=== PATIENT | male | born 1995 | race Hispanic/Latino ===

== ENCOUNTER 2018-11-14 22:16 | Emergency (ER) | payer OTHER, SELFPAY ==
[2018-11-14 22:19] VITALS: BP 120/64; PULSE 80; RESP 16; TEMP 36.8; O2SAT 98; BMI 30.8
--- NOTE | 2018-11-14 22:19 | DI.RAD.S_ITS ---
PROCEDURE: XR HAND RT MIN 3V INDICATIONS: Hand vs belt/metal TECHNIQUE: 3 views of the hand(s) acquired. COMPARISON: None. FINDINGS: Bones: No fractures or dislocations. Carpal bones are normally aligned. No suspicious bony lesions. Soft tissues: No suspicious soft tissue calcifications. IMPRESSION: No fracture. No osseous lesion. If symptoms and/or clinical suspicion for pathology persists, further assessment with repeat radiographs (7-10 days) or advanced imaging (e.g. CT, MRI or bone scan) may be helpful. Dictated by: Citlalli Chavira MD, PhD on 11/15/2018 at 8:57 Approved by: Citlalli Chavira MD, PhD on 11/15/2018 at 8:57
[2018-11-14] MEDS: TET,DIPH,PERTUSS(ACELL),VAC/PF 0.5 ML SYRINGE IM (22:20)
[2018-11-14] MEDS: LIDOCAINE 1% (PF) 6 ML INJ (22:24)
--- NOTE | 2018-11-14 22:25 | ED.WOUNDLAC ---
HPI - Wound/Laceration General Chief Complaint: Wound/Laceration Stated Complaint: lac on pinky finger Time Seen by Provider: 11/14/18 22:17 Source: patient Mode of arrival: ambulatory Limitations: no limitations History of Present Illness HPI narrative: 23-year-old male here for evaluation of cuts that he has sustained to his right hand. Patient was at work when he got his hand caught in a conveyor belt. He does not remember when his last tetanus shot was. Has not done anything to the wounds prior to arrival. Related Data Allergies Allergy/AdvReac Type Severity Reaction Status Date / Time No Known Drug Allergies Allergy Verified 11/14/18 22:41 Review of Systems Constitutional Denies fever(s) Cardiovascular Denies chest pain and Denies dyspnea Respiratory Denies dyspnea Gastrointestinal Gastrointestinal: Denies abdominal pain Musculoskeletal Comments: Pain in the right hand Integumentary/Breasts Comments: Laceration to the right hand Neurologic Denies behavioral changes Psychiatric Denies behavioral changes [facility] Medical History Patient denies medical problems (Acute) Social History lives independently: Yes Social History lives independently: Yes Exam Initial Vital Signs Initial Vital Signs: Vital Signs Temperature 98.3 F 11/14/18 22:19 Pulse Rate 80 11/14/18 22:19 Respiratory Rate 16 11/14/18 22:19 Blood Pressure 120/64 11/14/18 22:19 Pulse Oximetry 98 11/14/18 22:19 Const General: cooperative, comfortable and well groomed Orientation: alert, awake and oriented x3 Cardio Pulses: radial pulses present on the right Skin Other: Patient with a 2 cm laceration on the volar aspect of the right hand on the index finger in between the MCP and PIP joint. Second 2 cm laceration on the palmar aspect on the ring finger between the MCP and PIP joint. Patient with a 3rd irregular 3 cm cut on the volar aspect of the right little finger in between the MCP and PIP joint. Neuro Sensory Exam: no sensory deficits noted Extrem Other: Full range of motion of right wrist and joints of the fingers of the right and Procedures Laceration Repair Laceration 1: Site: hand Side (If applicable): right Size (cm): 22 Description: linear Depth: simple, single layer Amount of anesthesia used (mL): 2 Pre-repair: wound explored, irrigated extensively and deep structures intact Skin layer closed with: nylon Size (cm): 3-0 Number of sutures: 2 Technique: simple, interrupted Laceration 2: Site: hand Side (If applicable): right Size (cm): 2 Description: linear and clean Depth: simple, single layer Local Anesthetic: lidocaine 1% Amount of anesthesia used (mL): 2 Pre-repair: wound explored, irrigated extensively and deep structures intact Skin layer closed with: nylon Size (cm): 3-0 Number of sutures: 2 Technique: simple, interrupted Laceration 3: Site: hand Side (If applicable): right Size (cm): 3 Description: flap and irregular Depth: simple, single layer Local Anesthetic: lidocaine 1% Amount of anesthesia used (mL): 2 Pre-repair: wound explored, irrigated extensively and deep structures intact Skin layer closed with: nylon Size (cm): 3-0 Number of sutures: 6 Technique: simple, interrupted Course Orders Ordered: ED Orders 11/14/18 22:19 XR hand RT min 3V Stat Discontinued Medications Bacitracin (Bacitracin) 1 applic TOP NOW ONE Stop: 11/14/18 23:30 Last Admin: 11/14/18 23:37 Dose: 1 applic Diphtheria/Tetanus/Acell Pertussis (Adacel) 0.5 ml IM .ONCE ONE Stop: 11/14/18 22:18 Last Admin: 11/14/18 22:20 Dose: 0.5 ml Lidocaine HCl (Xylocaine 1% (Pf)) 6 ml INJ NOW ONE Stop: 11/14/18 22:20 Last Admin: 11/14/18 22:24 Dose: 6 ml Vital Signs - 8 hr 11/14/18 22:19 11/14/18 23:50 Temperature 98.3 F Pulse Rate 80 80 Respiratory Rate 16 16 Blood Pressure 120/64 120/70 Pulse Oximetry 98 99 MDM - Wound/Laceration Imaging Data Hand x-ray: Attestation: I personally reviewed and interpreted this imaging study as follows: My impression: No fractures or dislocation MDM Narrative Medical decision making narrative: Patient's tetanus was updated. Wounds were irrigated extensively. No deep structure involvement. Closed as described above. Patient was given return precautions and follow-up instructions. He expressed understanding and agreement with plan. Discharge Plan Departure Patient Disposition: Home Clinical Impression: Laceration Discharge Date/Time: 11/14/18 23:50 Interventions: ED Discharge Assessment Last Done: 11/14/18 23:50 Instructions: DI for Laceration Repair Activity Restrictions/Additional Instructions: Keep the bandage on for the next 24 hours. After that you can wash your hand like normal you can use soap and water like normal. Do not soak your hand anything. I would recommend no work tomorrow. On Sunday you can go back to work but keep your hand clean. The stitches do need to be removed in 7 days. You can also contact [phone] to talk with the health manager human resources to help to establish a primary provider. Return to the emergency department for any new or worsening symptoms Stand Alone Forms: Work Release Note
--- NOTE | 2018-11-14 23:18 | PC.NURSE ---
Dr Terry at bedside placing sutures.
[2018-11-14] MEDS: BACITRACIN OINT 0.9 GM PCKT 1 APPLIC TOP (23:37)
--- NOTE | 2018-11-14 23:45 | PC.NURSE ---
Bacitracin and bandages applied. Alumifoam splint applied to 5th finger per Dr. Terry.
[2018-11-14 23:50] VITALS: BP 120/70; PULSE 80; RESP 16; O2SAT 99
== END 2018-11-14 23:50 | disposition home or self-care (01) ==
PROVIDERS: Emergency Provider Emergency Medicine
DX: S61.411A Laceration without foreign body of right hand, initial encounter (principal); W23.0XXA Caught, crushed, jammed, or pinched between moving objects, initial encounter; Y99.0 Civilian activity done for income or pay
CPT/HCPCS: 12002; 73130; 99283; 90715

== ENCOUNTER 2018-11-21 14:22 | Emergency (ER) | payer OTHER, SELFPAY ==
[2018-11-21 14:25] VITALS: PULSE 81; TEMP 36.8; O2SAT 97; BMI 30.8
--- NOTE | 2018-11-21 16:48 | ED_ITS ---
HPI - Recheck/Abnormal Lab/Rx <Geovanna Whaley PA-C - Last Filed: 11/21/18 18:53> General Chief Complaint: Recheck/Abnormal Lab/Rx Stated Complaint: stitches removal right hand Time Seen by Provider: 11/21/18 14:47 Source: patient Mode of arrival: ambulatory Limitations: no limitations History of Present Illness HPI narrative: This 23-year-old male was seen last week for right hand lacera tions sustained at work. He had 3 sets of simple sutures placed. 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 He tried on Sunday but felt like he might have popped the sutures a little bit. Other than that, he has not had any problems, mild tenderness with pressure around the wound, no redness or drainage. Related Data Allergies Allergy/AdvReac Type Severity Reaction Status Date / Time No Known Drug Allergies Allergy Verified 11/21/18 14:25 Review of Systems <Geovanna Whaley PA-C - Last Filed: 11/21/18 18:53> Review of Systems ROS Unobtainable: All systems reviewed & are unremarkable except as noted in HPI and below PFSH <Geovanna Whaley PA-C - Last Filed: 11/21/18 18:53> Medical History Patient denies medical problems (Acute) Surgical History (Updated 11/21/18 @ 17:07 by Geovanna Whaley PA-C) No pertinent past surgical history (Acute) Social History lives independently: Yes Smoking Status: Current every day smoker Social History lives independently: Yes Smoking Status: Current every day smoker Exam <Geovanna Whaley PA-C - Last Filed: 11/21/18 18:53> Narrative Exam Narrative: General: Patient is sitting comfortably Dermatologic: There are 3 right palmar lacerations with some scabbing especially over the hypothenar area, all with sutures intact, clean and dry. After suture removal, there is a slightly open area oozing a bit under 1 of the scabs on the lateral wound. Steri-Strips and Levy wrap applied Neurovascular: Right hand is warm and pink with brisk cap refill, sensation grossly intact Musculoskeletal: Right hand fingers full range of motion, strength is intact against resistance in all marie, no effusion Initial Vital Signs Initial Vital Signs: Vital Signs Temperature 98.2 F 11/21/18 14:25 Pulse Rate 81 11/21/18 14:25 Pulse Oximetry 97 11/21/18 14:25 <Shira Taylor MD - Last Filed: 11/22/18 08:19> Initial Vital Signs Initial Vital Signs: Vital Signs Temperature 98.2 F 11/21/18 14:25 Pulse Rate 81 11/21/18 14:25 Pulse Oximetry 97 11/21/18 14:25 Course <Geovanna Whaley PA-C - Last Filed: 11/21/18 18:53> Course Additional Information: Patient was advised to keep pressure off of his wounds for a few more days to allow lateral 1 to fully heal by secondary intention. He will remain off of work tomorrow since he is unable to do light duty without repetitive use of the right hand and pressure on the area. Advised to keep wrapped with dressing on. Vital Signs Vital signs: Vital Signs - 8 hr 11/21/18 14:25 11/21/18 18:04 Temperature 98.2 F Pulse Rate 81 64 Respiratory Rate 14 Blood Pressure 111/64 Pulse Oximetry 97 100 <Shira Taylor MD - Last Filed: 11/22/18 08:19> Vital Signs Vital signs: Vital Signs - 8 hr 11/21/18 14:25 11/21/18 18:04 Temperature 98.2 F Pulse Rate 81 64 Respiratory Rate 14 Blood Pressure 111/64 Pulse Oximetry 97 100 Discharge Plan Departure Patient Disposition: Home Clinical Impression: Encounter for removal of sutures Discharge Date/Time: 11/21/18 18:05 Instructions: DI for Suture Removal Activity Restrictions/Additional Instructions: Please monitor for any signs of infection or problems with wound healing and follow up with your PCP if any. Please continue to protect the hand a little bit as needed until your discomfort resolves. Your wounds appear to be healing well today.
--- NOTE | 2018-11-21 17:57 | PC.NURSE ---
steri strips placed to laceration. and hand wrapped with ricardo wrap.
[2018-11-21 18:04] VITALS: BP 111/64; PULSE 64; RESP 14; O2SAT 100
== END 2018-11-21 18:05 | disposition home or self-care (01) ==
PROVIDERS: Emergency Provider Internal Medicine
DX: Z48.02 Encounter for removal of sutures (principal); Y99.0 Civilian activity done for income or pay
CPT/HCPCS: 99282

== ENCOUNTER 2021-06-06 17:39 | Emergency (ER) | payer BC, SELFPAY ==
[2021-06-06 18:20] VITALS: BP 165/75; PULSE 99; RESP 17; TEMP 36.6; O2SAT 99; BMI 28.7
--- NOTE | 2021-06-06 18:26 | DI.RAD.S_ITS ---
PROCEDURE: XR FEMUR LT MIN 2V INDICATIONS: injury TECHNIQUE: 2 views of the femur were acquired. COMPARISON: None. FINDINGS: Bones: No fractures or dislocations. No suspicious bony lesions. Soft tissues: No suspicious soft tissue calcifications or masses. IMPRESSION: No acute finding. Dictated by: Rob Saleh M.D. on 06/06/2021 at 19:22 Approved by: Rob Saleh M.D. on 06/06/2021 at 19:23
--- NOTE | 2021-06-06 20:03 | ED.LOWEXIN ---
HPI - Extremity Injury (Lower) <THAI Tello - Last Filed: 06/06/21 20:09> General Chief Complaint: Extremity Injury, Lower Stated Complaint: DROPPED DRESSER ON LEFT LEG Time Seen by Provider: 06/06/21 19:46 Source: patient Mode of arrival: Ambulatory History of Present Illness HPI Narrative: 25-year-old male presents to the emergency department complaining of having a dresser fall on to his left upper leg earlier today and now having swelling, a large abrasion and concern for internal bleeding. Patient denies any weakness in his leg, he states these same able to ambulate without difficulty, he states it is painful when he walks because of the movement of soft tissue. Patient denies not remember when his last tetanus was. Patient states he is otherwise healthy, without any medical conditions. Patient denies taking any medication prior to arrival. Related Data Previous Rx's Medication Instructions Recorded trazodone 50 mg tablet 50 mg PO BEDTIME #90 tab 08/18/20 diclofenac sodium 1 % topical gel 2 g TOPICAL QID PRN #100 g 06/06/21 mupirocin 2 % topical ointment 1 applic TOPICAL BID 6 Days #15 g 06/06/21 tramadol 50 mg tablet 50 mg PO DAILY PRN #10 tab 06/06/21 Allergies Allergy/AdvReac Type Severity Reaction Status Date / Time No Known Drug Allergies Allergy Verified 06/06/21 18:24 Review of Systems <THAI Tello - Last Filed: 06/06/21 20:09> Review of Systems Narrative: General: denies fever, chills, malaise, sweats, fatigue Head/Neck: denies headache, neck pain, dizziness Eyes: denies visual changes, eye pain Cardio: denies chest pain, palpitations, edema Respiratory: denies dyspnea, cough, orthopnea GI: denies abdominal pain, nausea, vomiting, or diarrhea : denies dysuria, hematuria, urinary retention, frequency or incontinence MSK: denies joint pain, muscle weakness, endorses large hematoma on right leg anterior thigh Skin: denies rash, itching, skin lesions or other Neuro: denies numbness, tingling Patient History <THAI Tello - Last Filed: 06/06/21 20:09> Medical History Abrasion of left ear canal 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 Cerumen impaction Patient denies medical problems Right otitis externa Surgical History No pertinent past surgical history Social History lives independently: Yes Smoking Status: Former smoker second hand exposure: Yes alcohol intake: current (3-6 beers per weekend) substance use type: former substance user, marijuana (2 oil dabs w/ 80% THC ) and methamphetamine (stopped using 2017) Smoking Status: Former smoker alcohol intake frequency: holidays/special occasions only Substance Use Type: does not use Exam <THAI Tello - Last Filed: 06/06/21 20:09> Narrative Exam Narrative: Independently reviewed vitals signs and nursing notes. General: cooperative, comfortable, in no acute distress, well developed and well groomed Head: atraumatic, symmetrical facial expressions Neck: supple, atraumatic Eyes: pupils equal round and reactive, EOMI Nose: nares patent, no rhinorrhea Mouth/Throat: uvula midline, moist mucus membranes Cardiovascular: regular rate and rhythm, no peripheral edema, warm extremities Respiratory: normal effort, able to speak in complete sentences, no audible wheezing, stridor, or rales. MSK: moves all extremities, ambulatory w/steady gait, left foot is neurovascularly intact, no weakness, left DP and PT pulses are 2+, large hematoma to anterior left thigh, fluctuance present, large abrasion, no bleeding, it is not firm and without pulsation. Skin: brisk capillary refill, no rash, no erythema Neuro: normal speech and cognition, A&O x3, normal tone Psych: mental status is grossly normal, congruent mood, normal affect, pleasant and cooperative Initial Vital Signs Initial Vital Signs: Vital Signs Temperature 98 F 06/06/21 18:20 Pulse Rate 99 H 06/06/21 18:20 Respiratory Rate 17 06/06/21 18:20 Blood Pressure 165/75 H 06/06/21 18:20 Pulse Oximetry 99 06/06/21 18:20 <Suha Gordon DO - Last Filed: 06/07/21 06:11> Initial Vital Signs Initial Vital Signs: Vital Signs Temperature 98 F 06/06/21 18:20 Pulse Rate 99 H 06/06/21 18:20 Respiratory Rate 17 06/06/21 18:20 Blood Pressure 165/75 H 06/06/21 18:20 Pulse Oximetry 99 06/06/21 18:20 Course <THAI Tello - Last Filed: 06/06/21 20:09> Orders Ordered: Discontinued Medications Bacitracin (Bacitracin Oint 0.9 Gm Pckt) 1 applic TOP NOW ONE Stop: 06/06/21 19:58 Last Admin: 06/06/21 20:11 Dose: 1 applic Documented by: ELIN Diphtheria/Tetanus/Acell Pertussis (Tet,Diph,Pertuss(Acell),Vac/Pf 0.5 Ml Syringe) 0.5 ml IM .ONCE ONE Stop: 06/06/21 19:56 Last Admin: 06/06/21 20:11 Dose: 0.5 ml Documented by: ELIN Ketorolac Tromethamine (Ketorolac 30 Mg/Ml Vial) 15 mg IM NOW ONE Stop: 06/06/21 19:56 Last Admin: 06/06/21 20:11 Dose: 15 mg Documented by: ELIN Vital Signs Vital signs: Vital Signs - 8 hr 06/06/21 18:20 Temperature 98 F Pulse Rate 99 H Respiratory Rate 17 Blood Pressure 165/75 H Pulse Oximetry 99 <Suha Gordon DO - Last Filed: 06/07/21 06:11> Orders Ordered: Discontinued Medications Bacitracin (Bacitracin Oint 0.9 Gm Pckt) 1 applic TOP NOW ONE Stop: 06/06/21 19:58 Last Admin: 06/06/21 20:11 Dose: 1 applic Documented by: ELIN Diphtheria/Tetanus/Acell Pertussis (Tet,Diph,Pertuss(Acell),Vac/Pf 0.5 Ml Syringe) 0.5 ml IM .ONCE ONE Stop: 06/06/21 19:56 Last Admin: 06/06/21 20:11 Dose: 0.5 ml Documented by: ELIN Ketorolac Tromethamine (Ketorolac 30 Mg/Ml Vial) 15 mg IM NOW ONE Stop: 06/06/21 19:56 Last Admin: 06/06/21 20:11 Dose: 15 mg Documented by: ELIN Vital Signs Vital signs: Vital Signs - 8 hr 06/06/21 18:20 Temperature 98 F Pulse Rate 99 H Respiratory Rate 17 Blood Pressure 165/75 H Pulse Oximetry 99 [facility] - Extremity Injury (Lower) <Trisha THAI Gramajo - Last Filed: 06/06/21 20:09> Imaging Data Extremity x-ray #1: Radiologist's Impression: PROCEDURE:? XR FEMUR LT MIN 2V ? INDICATIONS:? injury ? TECHNIQUE:? 2 views of the femur were acquired.? ? COMPARISON:? None. ? FINDINGS:? ? Bones:? No fractures or dislocations.? No suspicious bony lesions.? ? Soft tissues:? No suspicious soft tissue calcifications or masses.? ? IMPRESSION:? No acute finding. ? ? Dictated by: Rob Saleh M.D. on 06/06/2021 at 19:22 ? ? Approved by: Rob Saleh M.D. on 06/06/2021 at 19:23 ? [facility] Narrative Medical decision making narrative: 25-year-old male presents to the emergency department with large hematoma on his anterior thigh from accidentally having a dresser drop on it today. There is an associated abrasion, x-ray was negative for acute fracture dislocation, no suspicious soft tissue calcifications or masses was noted without any acute finding. On exam, patient has a large hematoma, it is fluctuant, approximately 5 cm in diameter, there is an abrasion, the edema is dependent to the abrasion. There is no pulsatile flow, this happened earlier today. Applied bacitracin to the abrasion, covered with a Telfa, and applied a 5 in Levy bandage for compression. Recommend patient ice, take ibuprofen and rest for the next few days with light walking and nothing strenuous. Patient tolerated Levy bandage well, he was given Toradol in the emergency department, his tetanus was updated. Patient understands to follow-up closely with his primary care provider Dr. Penny. Patient is appropriate and amenable to discharge home. Vital signs are stable on repeat examination is unremarkable. Patient has been informed of results. Patient has been given strict return to ER precautions for any new or worsening symptoms. Patient understands to follow up closely with outpatient providers as instructed. Patient understands plan and agrees to discharge home. All questions and concerns answered at this time. Discharge Plan Departure Patient Disposition: Home Clinical Impression: Hematoma of left thigh Qualifiers: Encounter type: initial encounter Qualified Code(s): S70.12XA - Contusion of left thigh, initial encounter Blunt trauma of left thigh Qualifiers: Encounter type: initial encounter Qualified Code(s): S79.822A - Other specified injuries of left thigh, initial encounter Instructions: DI for Hematoma (Bruise) Activity Restrictions/Additional Instructions: *You have been diagnosed with a large hematoma on your left upper leg. Please take ibuprofen every 6-8 hours for pain and swelling, take it with food and water please, I have also given you some pain pills call tramadol for pain that is worse than what ibuprofen covers. Please apply the mupirocin antibiotic ointment to the open part of your skin cover it with Band-Aid, you can apply diclofenac gel to the area around and then apply a Levy bandage for compression, not too tight just tight enough to apply a little bit of pressure. The please follow-up with Dr. Penny in the next 1-2 weeks for recheck on it's healing progress. If you develop any warmth, redness that is worsening, spreading out and not down or spreading up and not down, please return to the emergency department for possible infection. Please use ice to help with pain and swelling. Thank you for coming in and having this evaluated. I hope you feel better soon. *What to do: *Please continue to take your regular medications as directed. [x ] New medication prescriptions sent to your pharmacy: [ [facility]] [ ] New medication written as a paper prescription [ ] No new medications given *Please follow up with your primary care provider in 2-3 days, call for an appointment. Let them know you were seen in the Emergency Department and that we asked that you be seen for follow-up. We will electronically transmit a record of today's note if your PCP is in our system *If you do not have a primary care provider please contact [phone] to establish care with one of the [facility] primary care providers. *Return to Emergency Department if you should have any new, worsening or concerning symptoms, such as [fever greater than 101F, chills, worsening pain, persistent vomiting or other bothersome symptoms] Prescriptions: New diclofenac sodium 1 % gel 2 g topical QID PRN (Reason: pain, swelling) Qty: 100 0RF Rx Instructions: apply to single elbow, wrist or hand; for hand includes palm/fingers/back of hand mupirocin 2 % ointment 1 applic topical BID 6 Days Qty: 15 0RF tramadol 50 mg tablet 50 mg PO DAILY PRN (Reason: pain) Qty: 10 0RF No Action trazodone 50 mg tablet 50 mg PO BEDTIME Qty: 90 2RF Referrals: Romain Penny DO [Primary Care Provider] - Stand Alone Forms: Work Release Note <Suha Gordon DO - Last Filed: 06/07/21 06:11> [facility]ign ED Attending [place] Attestation: I was immediately available in the department for consultation. Documentation has been reviewed. Case was discussed. Patient was seen independently evaluated by myself. He does have a hematoma on his right thigh that is moderate in size. He also has a large abrasion. Plan for compression with Levy drainage, wound care and monitoring of the site. Patient is not anticoagulated. Tetanus should be updated today. Return precautions discussed with the patient. He is able to stand and ambulate appropriately.
[2021-06-06] MEDS: TET,DIPH,PERTUSS(ACELL),VAC/PF 0.5 ML SYRINGE IM (20:11)
[2021-06-06] MEDS: KETOROLAC 30 MG/ML VIAL 15 MG IM (20:11)
[2021-06-06] MEDS: BACITRACIN OINT 0.9 GM PCKT 1 APPLIC TOP (20:11)
[2021-06-06 20:36] VITALS: BP 126/82; PULSE 90; RESP 16; O2SAT 98
== END 2021-06-06 20:36 | disposition home or self-care (01) ==
PROVIDERS: Emergency Provider Nurse Practitioner Critical Care Medicine; PCP Family Medicine
DX: S79.822A Other specified injuries of left thigh, initial encounter (principal); S70.12XA Contusion of left thigh, initial encounter; W20.8XXA Other cause of strike by thrown, projected or falling object, initial encounter; Z23 Encounter for immunization
CPT/HCPCS: 73552; 90471; 96372; 99283; 99284; 90715; J1885

== ENCOUNTER 2021-06-19 14:36 | Emergency (ER) | payer BC, SELFPAY ==
[2021-06-19 14:40] VITALS: BP 143/82; PULSE 91; RESP 16; TEMP 36.9; O2SAT 98; BMI 28.7
--- NOTE | 2021-06-19 15:20 | ED.LOWEXIN ---
HPI - Extremity Injury (Lower) General Chief Complaint: Extremity Injury, Lower Stated Complaint: Left innner thigh hematoma f/u Time Seen by Provider: 06/19/21 14:57 Source: patient Mode of arrival: Ambulatory History of Present Illness HPI Narrative: Patient is a 25-year-old male here for evaluation of it increase in the swelling of his right upper thigh. Approximately 2 weeks ago he sustained a injury to his upper thigh. He was seen here in the ER. Was diagnosed with a skin contusion and also a deep hematoma. He states that his symptoms improved since then. His pain is improving. The swelling is improving. He was having some bruising extending down his thigh to his knee but he thought that this was expected. He states he went back to work on . He spent quite a bit of time standing and walking. The swelling in his thigh increased at that time. Since then he thinks it has improved somewhat but he is also having some tingling around his knee. The skin abrasion shows no signs of infection. He has no fevers. Related Data Previous Rx's Medication Instructions Recorded trazodone 50 mg tablet 50 mg PO BEDTIME #90 tab 08/18/20 diclofenac sodium 1 % topical gel 2 g TOPICAL QID PRN #100 g 06/06/21 tramadol 50 mg tablet 50 mg PO DAILY PRN #10 tab 06/06/21 Allergies Allergy/AdvReac Type Severity Reaction Status Date / Time No Known Drug Allergies Allergy Verified 06/19/21 14:49 Review of Systems Constitutional Constitutional: Denies fever(s) Musculoskeletal Musculoskeletal: Reports system reviewed and no additional complaints, except as documented and Reports as per HPI Integumentary/Breasts Skin/Breast: Reports system reviewed and no additional complaints, except as documented and Reports as per HPI Neurologic Neurologic: Reports system reviewed and no additional complaints, except as documented and Reports as per HPI Comments: Reports decreased sensation to light touch left knee. 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 Cerumen impaction Patient denies medical problems Right otitis externa Surgical History No pertinent past surgical history Social History lives independently: Yes Smoking Status: Former smoker second hand exposure: Yes alcohol intake: current (3-6 beers per weekend) substance use type: former substance user, marijuana (2 oil dabs w/ 80% THC ) and methamphetamine (stopped using 2017) Smoking Status: Former smoker alcohol intake frequency: holidays/special occasions only Substance Use Type: does not use Exam Initial Vital Signs Initial Vital Signs: Vital Signs Temperature 98.4 F 06/19/21 14:40 Pulse Rate 91 H 06/19/21 14:40 Respiratory Rate 16 06/19/21 14:40 Blood Pressure 143/82 H 06/19/21 14:40 Pulse Oximetry 98 06/19/21 14:40 HENMT Head: normal to inspection and normocephalic Cardio Pulses: dorsalis pedis present on the left Skin Other: Skin abrasion left upper inner thigh appears well without signs of infection. Neuro Other: Decreased sensation to light touch left knee Extrem Other: Patient has a area of fullness in the left upper inner thigh consistent with a subcutaneous hematoma. Course Vital Signs Vital signs: Vital Signs - 8 hr 06/19/21 14:40 Temperature 98.4 F Pulse Rate 91 H Respiratory Rate 16 Blood Pressure 143/82 H Pulse Oximetry 98 MDM - Extremity Injury (Lower) MDM Narrative Medical decision making narrative: The wound on his left upper inner 5 does not appear to have any signs of infection. He does have a area of fullness that is consistent with a hematoma. It has improved since its worsening on and I do not feel that he is actively bleeding. I suspect that the tingling around his left knee is because of the swelling of the hematoma pushing on nerves. He is otherwise vascularly intact. I do feel we can hold on any imaging for now. Low suspicion for DVT. I suspect he does needs to give this more time in order for it to heal. He was given a note for work. Was given return precautions and follow-up instructions. He expressed understanding and agreement. Discharge Plan Departure Patient Disposition: Home Clinical Impression: Hematoma of left thigh Instructions: DI for Hematoma (Bruise) Activity Restrictions/Additional Instructions: You can walk as tolerated although I do recommend that you limit your activities. It is going to be several days before your symptoms completely resolved. If you start to get fevers or more pain or more swelling you do need to be evaluated. Prescriptions: No Action trazodone 50 mg tablet 50 mg PO BEDTIME Qty: 90 2RF diclofenac sodium 1 % gel 2 g topical QID PRN (Reason: pain, swelling) Qty: 100 0RF Rx Instructions: apply to single elbow, wrist or hand; for hand includes palm/fingers/back of hand tramadol 50 mg tablet 50 mg PO DAILY PRN (Reason: pain) Qty: 10 0RF Referrals: Romain Penny, [Primary Care Provider] - Stand Alone Forms: Work Release Note
== END 2021-06-19 15:29 | disposition home or self-care (01) ==
PROVIDERS: Emergency Provider Emergency Medicine; PCP Family Medicine
DX: S70.12XA Contusion of left thigh, initial encounter (principal); X58.XXXA Exposure to other specified factors, initial encounter
CPT/HCPCS: 99281

== ENCOUNTER → 2021-07-15 11:51 | Outpatient (CLI) | payer BC, SELFPAY ==
[2021-07-15 12:17] LABS: Add Manual Diff / Slide Review NO; Basophils Absolute Auto 0 /uL (0-100); Basophils Percent Auto 0.2 % (0-2); Eosinophils Absolute Auto 0 /uL (0-450); Eosinophils Percent Auto 0.3 % (2-4); Hematocrit 42.2 % (41-53); Hemoglobin 14.4 g/dL (13.5-17.5); Lymphocytes Absolute Auto 1100 /uL (1100-4500); Lymphocytes Percent Auto 9.1 % (25-40); Mean Corpuscular HGB Conc 34.1 % (30-36); Mean Corpuscular Hemoglobin 30.8 PG (26-34); Mean Corpuscular Volume 90.6 fL (80-100); Monocytes Absolute Auto 1200 /uL (0-900); Monocytes Percent Auto 10.3 % (3-14); Neutrophils Absolute Auto 9500 /uL (1500-7000); Neutrophils Percent Auto 80.1 % (50-75); Platelet Count 357 X10^3/uL (150-400); Red Blood Cell Count 4.66 X10^6/uL (4.5-5.9); Red Cell Distribution Width 13.3 % (11.6-14.8); White Blood Cell Count 11.9 X10^3/uL (4.5-11.0)
[2021-07-15 12:27] LABS: Alanine Aminotransferase 39 IU/L (<50); Albumin 5.1 g/dL (3.5-5.0); Albumin Globulin Ratio 1.5 (1.0-2.8); Alkaline Phosphatase 50 U/L (38-126); Aspartate Aminotransferase 31 IU/L (17-59); Bilirubin Total 0.6 mg/dL (0.2-1.3); Blood Urea Nitrogen 12 mg/dL (9-20); Calcium 9.1 mg/dL (8.4-10.2); Carbon Dioxide 25 mmol/L (22-32); Chloride 105 mmol/L (98-107); Estimated Glomerular Filt Rate > 60 mL/min (>60); Globulin 3.4 g/dL (1.7-4.1); Glucose 118 mg/dL (70-100); HEMOLYSIS < 15 (0-50); Potassium 3.7 mmol/L (3.4-5.1); Sodium 138 mmol/L (137-145); Total Protein 8.5 g/dL (6.3-8.2)
== END ==
PROVIDERS: PCP Family Medicine; Referring Provider Family Medicine; Visit Provider Family Medicine
DX: M79.89 Other specified soft tissue disorders (principal); T14.8XXA Other injury of unspecified body region, initial encounter; L03.90 Cellulitis, unspecified
CPT/HCPCS: 36415; 80053; 85025; 87040

== ENCOUNTER 2021-09-16 17:52 | Emergency (ER) | payer BC, SELFPAY ==
[2021-09-16] VITALS (10 sets, daily range): BP systolic 131–138; BP diastolic 74–80; PULSE 80–99; RESP 16–18; TEMP 36.4–36.5; O2SAT 96–100; BMI 29.0
--- NOTE | 2021-09-16 18:15 | DI.RAD.S_ITS ---
PROCEDURE: XR CHEST 1V INDICATIONS: suspected sepsis TECHNIQUE: One view of the chest was acquired. COMPARISON: None. FINDINGS: Surgical changes and devices: None. Lungs and pleura: Left perihilar alveolar opacity and bilateral perihilar bronchial wall thickening. No other parenchymal opacities, effusion, or pneumothorax. Mediastinum: Mediastinal contours appear normal. Heart size is normal. Bones and chest wall: No suspicious bony lesions. Overlying soft tissues appear unremarkable. IMPRESSION: 1. Left perihilar opacity and bronchial wall thickening suggesting bronchitis and potentially reactive adenopathy or small perihilar airspace disease. Dictated by: Valeri Harris M.D. on 09/16/2021 at 19:13 Approved by: Valeri Harris M.D. on 09/16/2021 at 19:15
--- NOTE | 2021-09-16 18:20 | ED_ITS ---
HPI - Skin/Abscess/Foreign Bdy General Chief complaint: Skin/Abscess/Foreign Body Stated complaint: hematoma on left inner thigh, getting bigger Time Seen by Provider: 09/16/21 18:20 Source: patient Mode of arrival: Ambulatory Limitations: no limitations History of Present Illness HPI narrative: 26-year-old male former smoker with ongoing complications from a deep wound on his left thigh which was suffered an May. He had initially suffered an injury when he dropped a dresser on his medial thigh and had been seen a few months ago. And cared for appropriately. He had 1 instance where he had a recurrence of pain and swelling and was seen and evaluated by his primary care provider and started on antibiotics and apparently improved. He states 2 days ago, the absence of any injury he developed increasing pain and swelling with surrounding redness and that night developed subjective fever and chills. He denies any dizziness, weakness or lightheadedness. He denies any chest pain or shortness of breath. He has had no nausea, vomiting or diarrhea. Related Data Previous Rx's Medication Instructions Recorded trazodone 50 mg tablet 50 mg PO BEDTIME #90 tabs 08/18/20 diclofenac sodium 1 % topical gel 2 g topical QID PRN pain, swelling 06/06/21 #100 grams tramadol 50 mg tablet 50 mg PO DAILY PRN pain #10 tabs 06/06/21 prednisone 20 mg tablet 40 mg PO DAILY #14 tabs 06/24/21 doxycycline hyclate 100 mg capsule 100 mg PO BID #20 caps 07/15/21 doxycycline hyclate 100 mg tablet 100 mg PO BID #20 tabs 09/16/21 Allergies Allergy/AdvReac Type Severity Reaction Status Date / Time No Known Drug Allergies Allergy Verified 09/16/21 18:04 Review of Systems Review of Systems Narrative: GENERAL: See HPI HEENT: Denies sinus pain, ear pain, sore throat, difficulty swallowing, dizziness. RESPIRATORY: Denies dyspnea, cough, wheezing, hemoptysis, sputum. CARDIOVASCULAR: Denies chest pain, palpitations, orthopnea, edema, GASTROINTESTINAL: Denies nausea, vomiting, abdominal pain, diarrhea, const ipation, melena. : Denies dysuria, frequency, incontinence, hematuria, urinary retention. MUSCULOSKELETAL: See HPI SKIN: See HPI NEUROLOGIC: Denies weakness, headache, numbness, change in speech, confusion, seizures, incoordination. PSYCHIATRIC: No concerning psychosocial issues. 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 Well-developed patient, in mild distress. HEAD: Atraumatic. Normocephalic. EYES: Pupils equal round and reactive. Extraocular motions intact. No scleral icterus. No injection or drainage. ENT: Nose without bleeding, purulent drainage. Throat without erythema, to nsillar hypertrophy or exudate. Airway patent. NECK: Trachea midline. Non tender CARDIOVASCULAR: Regular rate and rhythm without murmurs, gallops, or rubs. RESPIRATORY: Clear to auscultation. Breath sounds equal bilaterally. No wheezes, rales, or rhonchi. GASTROINTESTINAL: Abdomen soft, non-tender, nondistended. EXTREMITIES: Left mid/medial thigh with large erythematous, warm mass consistent with possible hematoma vs. infectious process vs. DVT. Closed. no lymphangitis. No fluctuance, moderately indurated. BACK: Nontender without deformity or crepitance. No flank tenderness. NEURO: AOx3. SKIN: No rash or erythema of visible areas Initial Vital Signs Initial Vital Signs: Vital Signs Temperature 97.6 F 09/16/21 18:05 Pulse Rate 99 H 09/16/21 18:05 Respiratory Rate 18 09/16/21 18:05 Blood Pressure 134/75 09/16/21 18:05 Pulse Oximetry 99 09/16/21 18:05 Oxygen Delivery Method 09/16/21 18:05 Course Orders Ordered: ED Orders 09/16/21 18:15 XR chest 1V Stat EKG-12 Lead Stat RT Consult Eval and Treat NOW 09/16/21 18:24 US periph venous low extrem lt Stat 09/16/21 18:28 Blood Culture Stat Complete Blood Count AUTO DIFF Stat Comprehensive Metabolic Panel Stat Lactate (Lactic Acid) Stat Lipase Stat Procalcitonin Stat 09/16/21 19:08 CT LE LT w con Stat Discontinued Medications Doxycycline Hyclate (Doxycycline Hyclate 100 Mg Tablet) 100 mg PO NOW ONE Stop: 09/16/21 21:42 Last Admin: 09/16/21 21:52 Dose: 100 mg Documented By: ROSALINAW Sodium Chloride (Normal Saline 0.9%) 1,000 mls @ 1,000 mls/hr IV BOLUS ONE Stop: 09/16/21 19:14 Last Infusion: 09/16/21 20:23 Dose: 0 mls/hr Documented By: Admin: 09/16/21 18:40 Dose: 1,000 mls/hr Documented By: FADI Consultations Consultation #1: discussed with complaint investigations officer ortho. Labs and CT are reassuring. Recommend compression, ABX ok, close follow up, return precautions Vital Signs Vital signs: Vital Signs - 8 hr 09/16/21 19:34 09/16/21 20:00 09/16/21 21:51 Temperature Pulse Rate 92 H 86 87 Respiratory Rate Blood Pressure Pulse Oximetry 98 99 97 Oxygen Delivery Method 09/16/21 21:52 09/16/21 21:52 09/16/21 22:04 Temperature 97.7 F Pulse Rate 86 80 Respiratory Rate 16 Blood Pressure 131/80 131/80 Pulse Oximetry 98 98 Oxygen Delivery Method Room Air MDM - Skin/Abscess/Foreign Bdy Lab Data Result diagrams: 09/16/21 18:28 09/16/21 18:28 Labs: Lab Results 09/16/21 09/16/21 09/16/21 Range/Units 18:28 18:28 18:28 WBC 7.5 (4.5-11.0) X10^3/uL RBC 4.63 (4.5-5.9) X10^6/uL Hgb 14.2 (13.5-17.5) g/dL Hct 40.6 L (41-53) % MCV 87.5 (80-100) fL MCH 30.6 (26-34) PG MCHC 35.0 (30-36) % RDW 13.1 (11.6-14.8) % Plt Count 321 (150-400) X10^3/uL Neut % (Auto) 51.0 (50-75) % Lymph % (Auto) 34.7 (25-40) % Hendricks % (Auto) 11.1 (3-14) % Eos % (Auto) 2.6 (2-4) % Baso % (Auto) 0.6 (0-2) % Neut # (Auto) 3800 (1276-8659) /uL Lymph # (Auto) 2600 (6391-7969) /uL Hendricks # (Auto) 800 (0-900) /uL Eos # (Auto) 200 (0-450) /uL Baso # (Auto) 0 (0-100) /uL Sodium 139 (137-145) mmol/L Potassium 3.7 (3.4-5.1) mmol/L Chloride 102 (98-107) mmol/L Carbon Dioxide 26 (22-32) mmol/L BUN 21 H (9-20) mg/dL Creatinine 0.66 (0.66-1.25) mg/dL Estimated GFR > 60 (>60) mL/min BUN/Creatinine Ratio 31.8 H (6-22) Glucose 120 H (70-100) mg/dL Lactate 0.7 (0.7-2.1) mmol/L Calcium 9.1 (8.4-10.2) mg/dL Total Bilirubin 0.4 (0.2-1.3) mg/dL AST 48 (17-59) IU/L ALT 51 H (<50) IU/L Alkaline Phosphatase 53 (38-126) U/L Total Protein 8.3 H (6.3-8.2) g/dL Albumin 4.6 (3.5-5.0) g/dL Globulin 3.7 (1.7-4.1) g/dL Albumin/Globulin Ratio 1.2 (1.0-2.8) Lipase 44 (23-300) U/L Procalcitonin 0.30 (<0.5) ng/mL Imaging Data CT LE: Radiologist's Impression: [address] [address] [address] Scan Report Signed Patient: Saman Samayoa Jr MR#: [id number] : 1995 Acct:[id number] Age/Sex: 26 / M Date of Service: 09/16/21 Loc: ED Accession Number: [id number] ?? Procedure: CT LE LT w con Ordering Provider: Gerardo Zimmerman D.O. PROCEDURE: CT LE LT W CON ? COMPARISON: None. ? INDICATIONS: pain, swelling redness L medial thigh. Hematoma, infection ? TECHNIQUE:? Axial CT images obtained through the left thigh.? Coronal and sagittal reformations and soft tissue windows. ? FINDINGS: ? Bones:? Intact osseous structures.? Normal cortex without periostitis. ? Soft tissues:? There is a focal area of moderate soft tissue edema along the medial aspect of the left thigh.? There is fluid layering along the superficial fascial surface. ?No deep fascial fluid.? The underlying musculature appears normal in bulk and attenuation.? The underlying vasculature appears normal.? In the inguinal region there are mildly prominent lymph nodes.? Mildly prominent lymph nodes extend into the external iliac chain.? There are no drainable fluid collections, foreign bodies, or soft tissue gas. ? IMPRESSION: ? 1. Focal injury to the subcutaneous tissues in the medial left thigh with underlying edema and fascial fluid.? This is most likely an organizing contusion/hematoma.? No drainable fluid collections.? No underlying muscular, vascular, or osseous abnormalities. ? 2. Mildly prominent left inguinal lymph nodes consistent with reactive adenopathy. ? 3. There is no visible overlying skin thickening to suggest significant cellulitis though infection cannot be excluded.? Dictated by: Valeri Harris M.D. on 09/16/2021 at 20:33 ? ? Approved by: Valeri Harris M.D. on 09/16/2021 at 20:38 ? [facility] Narrative Medical decision making narrative: Patient with recurrence of pain, swelling and redness in same location as an injury a few months ago. He had previously had a hematoma with possible bacterial superinfection that resolved and return to normal until a few days ago. He denies any repeat injury. He has had no fever. Labs are very reassuring and imaging would show the possibility of hematoma but no drainable fluid collection, foreign body or other significant finding. Given overlying erythema and an episode of chills patient is placed on antibiotics for possible infectious cause, given extensive return precautions and questions have been answered to his apparent satisfaction Discharge Plan Departure Patient Disposition: Home Clinical Impression: Hematoma Instructions: DI for Cellulitis -- Adult, DI for Hematoma (Bruise) Activity Restrictions/Additional Instructions: *You have been diagnosed with [recurrence of hematoma with possible overlying cellulitis] *What to do: *Please continue to take your regular medications as directed. [ x] New medication prescriptions sent to your pharmacy: [[facility] ] [ ] New medication written as a paper prescription [ ] No new medications given *Please follow up with your primary care provider in 2-3 days, call for an appointment. Let them know you were seen in the Emergency Department and that we ask that you be seen in follow up. We will electronically transmit a record of today's note if your PCP is in our system *Please resume using your compression shorts *If you do not have a primary care provider please contact the [facility] Resource line at [phone]. They will ask some questions about your medical history and help get you set up with a doctor in the community. *Return to Emergency Department if you should have any new, worsening or concerning symptoms, such as [fever greater than 101 F, shaking chills, worsening pain, persistent vomiting or other bothersome symptoms] Prescriptions: New doxycycline hyclate 100 mg tablet 100 mg PO BID Qty: 20 0RF No Action trazodone 50 mg tablet 50 mg PO BEDTIME Qty: 90 2RF doxycycline hyclate 100 mg capsule 100 mg PO BID Qty: 20 0RF prednisone 20 mg tablet 40 mg PO DAILY Qty: 14 0RF diclofenac sodium 1 % gel 2 g topical QID PRN (Reason: pain, swelling) Qty: 100 0RF Rx Instructions: apply to single elbow, wrist or hand; for hand includes palm/fingers/back of hand tramadol 50 mg tablet 50 mg PO DAILY PRN (Reason: pain) Qty: 10 0RF Referrals: Romain Penny DO [Primary Care Provider] - Visit Report Forms: Patient Portal/API
--- NOTE | 2021-09-16 18:24 | DI.US.S_ITS ---
PROCEDURE: US PERIPH VENOUS LOW EXTREM LT INDICATIONS: pain, swelling, redness TECHNIQUE: Real-time imaging, as well as color and pulse Doppler interrogation, were performed of the lower extremity deep veins from the inguinal ligament to the popliteal fossa. COMPARISON: None. FINDINGS: The common femoral, femoral and popliteal veins are normally compressible, and free of intraluminal thrombus. Color and pulse Doppler demonstrate normal phasic intraluminal flow. There is normal augmentation response to distal compression maneuver. Mildly prominent inguinal lymph nodes with benign fatty amy are demonstrated. IMPRESSION: 1. No left lower extremity DVT. Dictated by: Valeri Harris M.D. on 09/16/2021 at 20:38 Approved by: Valeri Harris M.D. on 09/16/2021 at 20:39
[2021-09-16] MEDS: SODIUM CHLORIDE 0.9% 1,000 ML 1000 ML IV (18:40)
[2021-09-16 18:41] LABS: Add Manual Diff / Slide Review NO; Basophils Absolute Auto 0 /uL (0-100); Basophils Percent Auto 0.6 % (0-2); Eosinophils Absolute Auto 200 /uL (0-450); Eosinophils Percent Auto 2.6 % (2-4); Hematocrit 40.6 % (41-53); Hemoglobin 14.2 g/dL (13.5-17.5); Lymphocytes Absolute Auto 2600 /uL (1100-4500); Lymphocytes Percent Auto 34.7 % (25-40); Mean Corpuscular Hemoglobin 30.6 PG (26-34); Mean Corpuscular Volume 87.5 fL (80-100); Monocytes Absolute Auto 800 /uL (0-900); Monocytes Percent Auto 11.1 % (3-14); Neutrophils Absolute Auto 3800 /uL (1500-7000); Platelet Count 321 X10^3/uL (150-400); Red Blood Cell Count 4.63 X10^6/uL (4.5-5.9); Red Cell Distribution Width 13.1 % (11.6-14.8); White Blood Cell Count 7.5 X10^3/uL (4.5-11.0)
[2021-09-16 18:51] LABS: Alanine Aminotransferase 51 IU/L (<50); Albumin 4.6 g/dL (3.5-5.0); Albumin Globulin Ratio 1.2 (1.0-2.8); Alkaline Phosphatase 53 U/L (38-126); Aspartate Aminotransferase 48 IU/L (17-59); BUN Creatinine Ratio 31.8 (6-22); Bilirubin Total 0.4 mg/dL (0.2-1.3); Blood Urea Nitrogen 21 mg/dL (9-20); Calcium 9.1 mg/dL (8.4-10.2); Carbon Dioxide 26 mmol/L (22-32); Chloride 102 mmol/L (98-107); Estimated Glomerular Filt Rate > 60 mL/min (>60); Globulin 3.7 g/dL (1.7-4.1); Glucose 120 mg/dL (70-100); HEMOLYSIS < 15 (0-50); Lactate (Lactic Acid) 0.7 mmol/L (0.7-2.1); Lipase 44 U/L (23-300); Potassium 3.7 mmol/L (3.4-5.1); Sodium 139 mmol/L (137-145); Total Protein 8.3 g/dL (6.3-8.2)
--- NOTE | 2021-09-16 19:08 | DI.CT.S_ITS ---
PROCEDURE: CT LE LT W CON COMPARISON: None. INDICATIONS: pain, swelling redness L medial thigh. Hematoma, infection TECHNIQUE: Axial CT images obtained through the left thigh. Coronal and sagittal reformations and soft tissue windows. FINDINGS: Bones: Intact osseous structures. Normal cortex without periostitis. Soft tissues: There is a focal area of moderate soft tissue edema along the medial aspect of the left thigh. There is fluid layering along the superficial fascial surface. No deep fascial fluid. The underlying musculature appears normal in bulk and attenuation. The underlying vasculature appears normal. In the inguinal region there are mildly prominent lymph nodes. Mildly prominent lymph nodes extend into the external iliac chain. There are no drainable fluid collections, foreign bodies, or soft tissue gas. IMPRESSION: 1. Focal injury to the subcutaneous tissues in the medial left thigh with underlying edema and fascial fluid. This is most likely an organizing contusion/hematoma. No drainable fluid collections. No underlying muscular, vascular, or osseous abnormalities. 2. Mildly prominent left inguinal lymph nodes consistent with reactive adenopathy. 3. There is no visible overlying skin thickening to suggest significant cellulitis though infection cannot be excluded. Dictated by: Valeri Harris M.D. on 09/16/2021 at 20:33 Approved by: Valeri Hraris M.D. on 09/16/2021 at 20:38
[2021-09-16] MEDS: DOXYCYCLINE HYCLATE 100 MG TABLET PO (21:52)
== END 2021-09-16 21:59 | disposition home or self-care (01) ==
PROVIDERS: Emergency Provider Emergency Medicine; PCP Family Medicine
DX: S70.12XA Contusion of left thigh, initial encounter (principal)
CPT/HCPCS: 36415; 71045; 73701; 80053; 83605; 83690; 84145; 85025; 87040; 93971; 99284

== ENCOUNTER → 2023-07-17 14:19 | Outpatient (CLI) | payer BC, SELFPAY ==
[2023-07-17 14:55] LABS: Add Manual Diff / Slide Review NO; Basophils Absolute Auto 100 /uL (0-100); Basophils Percent Auto 0.5 % (0-2); Eosinophils Absolute Auto 200 /uL (0-450); Hematocrit 42.2 % (41-53); Hemoglobin 14.5 g/dL (13.5-17.5); Lymphocytes Absolute Auto 2500 /uL (1100-4500); Lymphocytes Percent Auto 27.3 % (25-40); Mean Corpuscular HGB Conc 34.5 % (30-36); Mean Corpuscular Volume 89.9 fL (80-100); Monocytes Absolute Auto 800 /uL (0-900); Monocytes Percent Auto 8.8 % (3-14); Neutrophils Absolute Auto 5700 /uL (1500-7000); Neutrophils Percent Auto 61.4 % (50-75); Platelet Count 369 X10^3/uL (150-400); Red Blood Cell Count 4.69 X10^6/uL (4.5-5.9); Red Cell Distribution Width 12.6 % (11.6-14.8); White Blood Cell Count 9.3 X10^3/uL (4.5-11.0)
[2023-07-17 15:17] LABS: Alanine Aminotransferase 30 IU/L (<50); Albumin 5.1 g/dL (3.5-5.0); Albumin Globulin Ratio 1.8 (1.0-2.8); Alkaline Phosphatase 51 U/L (38-126); Aspartate Aminotransferase 29 IU/L (17-59); BUN Creatinine Ratio 31.1 (6-22); Bilirubin Total 0.5 mg/dL (0.2-1.3); Blood Urea Nitrogen 19 mg/dL (9-20); Calcium 9.8 mg/dL (8.4-10.2); Carbon Dioxide 28 mmol/L (22-32); Chloride 103 mmol/L (98-107); Estimated Glomerular Filt Rate > 60 mL/min (>60); Globulin 2.8 g/dL (1.7-4.1); Glucose 94 mg/dL (70-100); HEMOLYSIS < 15 (0-50); Potassium 4.1 mmol/L (3.4-5.1); Sodium 137 mmol/L (137-145); Total Protein 7.9 g/dL (6.3-8.2)
[2023-07-17 21:00] LABS: Hemoglobin A1C% w Est Avg Glu 5.6 % (4.0-6.0)
== END ==
PROVIDERS: PCP Family Medicine; Referring Provider Family Medicine; Visit Provider Family Medicine
DX: R73.03 Prediabetes (principal); F16.980 Hallucinogen use, unspecified with hallucinogen-induced anxiety disorder; T14.8XXA Other injury of unspecified body region, initial encounter
CPT/HCPCS: 36415; 80053; 83036; 85025